=== PATIENT | female | born 1990 | race Caucasian/White ===

== ENCOUNTER 2017-08-06 17:13 | Emergency (ER) | payer OTHER ==
[~2017-08-06] VITALS: Ht 157.5 cm; Wt 92.0 kg
[~2017-08-06 17:13] MED LIST: PREN0.01 PO
[2017-08-06 17:20] VITALS: BP 157/93; PULSE 114; RESP 16; TEMP 98.5; O2SAT 96
[2017-08-06 17:47] LABS: BILIRUBIN, URINE NEG (NEG); BLOOD, URINE TRACE (NEG); GLUCOSE,URINE NEG (NEG); KETONE, URINE TRACE mg/dL (NEG); NITRITE,URINE NEG (NEG); PH, URINE 5.5 (5.0-8.5); URINE LEUKOCYTE ESTERASE NEG (NEG)
[2017-08-06 18:08] LABS: URINE COLOR YELLOW (YELLW/STRAW)
[2017-08-06 18:09] LABS: BACTERIA, URINE FEW /hpf; RBC, URINE 0-3 /hpf (0-3); SQUAMOUS EPITHELIAL CELL URINE > 8 /hpf (0-5)
[2017-08-06] MEDS ORDERED: birth control (18:41)
--- NOTE | 2017-08-06 18:47 | PD ---
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 She denies any vomiting, fevers, or any other symptoms. She states that she thinks she could be . Modifying Factors: None Associated Signs & Symptoms: Does not feel right, lower abdominal discomfort, spotting Risk Factors: None PFSH Past Medical History Diminished Hearing: No Reproductive: Yes (PCOS) : 2 Para: 1 Past Surgical History Section: Yes (X1) Social History Alcohol Use: Yes (OCCASIONALLY) Tobacco Use: No Substance Use: No Allergies-Medications (Allergen,Severity, Reaction): Coded Allergies: No Known Allergies (Unverified Adverse Reaction, Unknown, 08/06/17) Reported Meds & Prescriptions Reported Meds & Active Scripts Active Reported [ control] Review of Systems Except as stated in HPI: all other systems reviewed are Neg Physical Exam Narrative GENERAL: Well-developed young female patient currently in mild distress. Awake and oriented 3. SKIN: Focused skin assessment warm/dry. HEAD: Atraumatic. Normocephalic. EYES: Pupils equal and round. No scleral icterus. No injection or drainage. ENT: No nasal bleeding or discharge. Mucous membranes pink and moist. NECK: Trachea midline. No JVD. Supple. CARDIOVASCULAR: Regular rate and rhythm. No murmur appreciated. RESPIRATORY: No accessory muscle use. Clear to auscultation. Breath sounds equal bilaterally. GASTROINTESTINAL: Abdomen soft, non-tender, nondistended. Hepatic and splenic margins not palpable. GENITOURINARY: Normal external genitalia without lesions or erythema. Vaginal vault without blood but with notable whitish drainage. Cervical os was closed without drainage. No cervical motion tenderness. Uterus nontender. Bilateral adnexa nontender without masses. MUSCULOSKELETAL: No obvious deformities. No clubbing. No cyanosis. No edema. NEUROLOGICAL: Awake and alert. No obvious cranial nerve deficits. Motor grossly within normal limits. Normal speech. PSYCHIATRIC: Appropriate mood and affect; insight and judgment normal. Data Data Last Documented VS Vital Signs Date Time Temp Pulse Resp B/P (MAP) Pulse Ox O2 Delivery O2 Flow Rate FiO2 08/06/17 17:20 98.5 114 16 157/93 (114) 96 Orders Orders Urinalysis - C+S If Indicated (08/06/17 17:23) Ed Urine Pregnancytest Poc (08/06/17 17:23) Beta Hcg (Quant/Titer) (08/06/17 18:32) Complete Blood Count With Diff (08/06/17 18:32) Basic Metabolic Panel (Bmp) (08/06/17 18:32) Complete Rh (08/06/17 18:32) Gc And Chlamydia Pcr (08/06/17 18:58) Wet Prep Profile (08/06/17 18:58) Labs Laboratory Tests Test 08/06/17 17:20 08/06/17 19:03 Urine Color YELLOW Urine Turbidity CLEAR Urine pH 5.5 Urine Specific Wilson 1.032 Urine Protein NEG mg/dL Urine Glucose (UA) NEG mg/dL Urine Ketones TRACE mg/dL Urine Occult Blood TRACE Urine Nitrite NEG Urine Bilirubin NEG Urine Leukocyte Esterase NEG Urine RBC 0-3 /hpf Urine WBC 3-5 /hpf Urine Squamous Epithelial Cells > 8 /hpf Urine Bacteria FEW /hpf Microscopic Urinalysis Comment CULT NOT INDICATED White Blood Count 8.8 TH/MM3 Red Blood Count 5.04 MIL/MM3 Hemoglobin 13.4 GM/DL Hematocrit 41.4 % Mean Corpuscular Volume 82.1 FL Mean Corpuscular Hemoglobin 26.6 PG Mean Corpuscular Hemoglobin Concent 32.4 % Red Cell Distribution Width 12.4 % Platelet Count 338 TH/MM3 Mean Platelet Volume 8.4 FL Neutrophils (%) (Auto) 73.5 % Lymphocytes (%) (Auto) 19.3 % Monocytes (%) (Auto) 6.1 % Eosinophils (%) (Auto) 0.9 % Basophils (%) (Auto) 0.2 % Neutrophils # (Auto) 6.5 TH/MM3 Lymphocytes # (Auto) 1.7 TH/MM3 Monocytes # (Auto) 0.5 TH/MM3 Eosinophils # (Auto) 0.1 TH/MM3 Basophils # (Auto) 0.0 TH/MM3 CBC Comment DIFF FINAL Differential Comment Sodium Level 137 MEQ/L Potassium Level 3.9 MEQ/L Chloride Level 107 MEQ/L [facility] Medical Decision Making Medical Screen Exam Complete: Yes Emergency Medical Condition: Yes Medical Record Reviewed: Yes Interpretation(s) Laboratory Tests Test 08/06/17 17:20 08/06/17 19:03 Urine Ketones TRACE mg/dL (NEG) Urine Squamous Epithelial Cells > 8 /hpf (0-5) Urine Bacteria FEW /hpf (NONE) Mean Corpuscular Hemoglobin 26.6 PG (27.0-34.0) Neutrophils (%) (Auto) 73.5 % (16.0-70.0) Differential Diagnosis UTI versus threatened AB versus ectopic Narrative Course testing is positive. She is Rh+. There is no CMT, cervix is closed. Physician Communication Physician Communication Case is signed out to Dr. Obando at 7 PM pending lab work, hCG, possible ultrasound if the patient is far enough along for evaluation . Diagnosis Primary Impression: Condition: Stable SoontharothKarissa carlos MD Aug 06, 2017 18:47
[2017-08-06 19:16] LABS: AUTOMATED NEUTROPHIL # 6.5 TH/MM3 (1.8-7.7); BASOPHIL % 0.2 % (0.0-2.0); EOSINOPHIL # 0.1 TH/MM3 (0-0.4); EOSINOPHIL % 0.9 % (0.0-4.0); HEMATOCRIT 41.4 % (35.0-46.0); HEMOGLOBIN 13.4 GM/DL (11.6-15.3); LYMPH % 19.3 % (9.0-44.0); LYMPHOCYTE # 1.7 TH/MM3 (1.0-4.8); MEAN CELL VOLUME 82.1 FL (80.0-100.0); MEAN CORPUSCULAR HEMOGLOBIN 26.6 PG (27.0-34.0); MEAN CORPUSCULAR HGB CONC 32.4 % (32.0-36.0); MEAN PLATELET VOLUME 8.4 FL (7.0-11.0); MONO % 6.1 % (0.0-8.0); MONOCYTE # 0.5 TH/MM3 (0-0.9); NEUT % 73.5 % (16.0-70.0); PLATELET COUNT 338 TH/MM3 (150-450); RED BLOOD COUNT 5.04 MIL/MM3 (4.00-5.30); RED CELL DISTRIBUTION WIDTH 12.4 % (11.6-17.2); WHITE BLOOD COUNT 8.8 TH/MM3 (4.0-11.0)
[2017-08-06 19:26] LABS: BICARBONATE 26.9 MEQ/L (21.0-32.0); CALCIUM 8.5 MG/DL (8.5-10.1)
[2017-08-06 19:30] VITALS: BP 145/88; PULSE 105; RESP 18; O2SAT 97
[2017-08-06 19:30] LABS: CREATININE 0.55 MG/DL (0.50-1.00)
--- NOTE | 2017-08-06 20:12 | PD ---
Physical Exam Time Seen by Provider: 20:[address] Stephenson left this patient with me to check the results of the laboratory and likely discharge. Data Data Last Documented VS Vital Signs Date Time Temp Pulse Resp B/P (MAP) Pulse Ox O2 Delivery O2 Flow Rate FiO2 08/06/17 17:20 98.5 114 16 157/93 (114) 96 Orders Orders Urinalysis - C+S If Indicated (08/06/17 17:23) Ed Urine Pregnancytest Poc (08/06/17 17:23) Beta Hcg (Quant/Titer) (08/06/17 18:32) Complete Blood Count With Diff (08/06/17 18:32) Basic Metabolic Panel (Bmp) (08/06/17 18:32) Complete Rh (08/06/17 18:32) Gc And Chlamydia Pcr (08/06/17 18:58) Wet Prep Profile (08/06/17 18:58) Us Pelvis (Ques Pr/Ect)W Trans (08/06/17 ) Labs Laboratory Tests Test 08/06/17 17:20 08/06/17 19:03 Urine Color YELLOW Urine Turbidity CLEAR Urine pH 5.5 Urine Specific Sullivan 1.032 Urine Protein NEG mg/dL Urine Glucose (UA) NEG mg/dL Urine Ketones TRACE mg/dL Urine Occult Blood TRACE Urine Nitrite NEG Urine Bilirubin NEG Urine Leukocyte Esterase NEG Urine RBC 0-3 /hpf Urine WBC 3-5 /hpf Urine Squamous Epithelial Cells > 8 /hpf Urine Bacteria FEW /hpf Microscopic Urinalysis Comment CULT NOT INDICATED White Blood Count 8.8 TH/MM3 Red Blood Count 5.04 MIL/MM3 Hemoglobin 13.4 GM/DL Hematocrit 41.4 % Mean Corpuscular Volume 82.1 FL Mean Corpuscular Hemoglobin 26.6 PG Mean Corpuscular Hemoglobin Concent 32.4 % Red Cell Distribution Width 12.4 % Platelet Count 338 TH/MM3 Mean Platelet Volume 8.4 FL Neutrophils (%) (Auto) 73.5 % Lymphocytes (%) (Auto) 19.3 % Monocytes (%) (Auto) 6.1 % Eosinophils (%) (Auto) 0.9 % Basophils (%) (Auto) 0.2 % Neutrophils # (Auto) 6.5 TH/MM3 Lymphocytes # (Auto) 1.7 TH/MM3 Monocytes # (Auto) 0.5 TH/MM3 Eosinophils # (Auto) 0.1 TH/MM3 Basophils # (Auto) 0.0 TH/MM3 CBC Comment DIFF FINAL Differential Comment Clue Cells (Wet Prep) NONE SEEN Vaginal Trichomonas (Wet Prep) NONE SEEN Vaginal Yeast (Wet Prep) NONE SEEN Blood Urea Nitrogen 10 MG/DL Creatinine 0.55 MG/DL Random Glucose 89 MG/DL Calcium Level 8.5 MG/DL Sodium Level 137 MEQ/L Potassium Level 3.9 MEQ/L Chloride Level 107 MEQ/L Carbon Dioxide Level 26.9 MEQ/L Anion Gap 3 MEQ/L Estimat Glomerular Filtration Rate 132 ML/MIN Human Chorionic Gonadotropin, Quant 1371 MIU/ML Chlamydia trachomatis DNA (PCR) NOT DETECTED Neisseria gonorrhoeae DNA (PCR) NOT DETECTED MDM Medical Record Reviewed: Yes Supervised Visit with EDITH: No Interpretation(s) The CBC is normal. The beta-hCG is 1371 and the basic metabolic profile is normal. The urinalysis shows trace ketones, trace blood and few bacteria but is otherwise normal and culture is not indicated. The wet prep, Trichomonas and vaginal yeast are negative on the wet prep. The ultrasound showed no definite intrauterine gestational sac. This is likely due to a very early intrauterine . Serial beta-hCG levels are requested of the patient, she needs to follow-up with an fish hatchery assistant. No adnexal masses or fluid fluid is noted within the cul-de-sac. Differential Diagnosis , ectopic , early intrauterine , missed , intrauterine , urinary tract infection, PID, bacterial vaginosis, monilial vaginitis, Trichomonas vaginitis Narrative Course The patient likely has a very early intrauterine . Nevertheless, serial beta hCG titers are requested of this patient Diagnosis Primary Impression: Additional Instruction: As we discussed, in till we can actually see the inside the uterus we have to worry about an ectopic . It is necessary to get repeat blood tests to make sure that your is going along fine. It is necessary to follow-up as soon as possible with an fish hatchery assistant. Start taking the vitamins again. Med/Other Pt SpecificInfo: No Change to Meds Disposition: 01 DISCHARGE HOME Condition: Stable Keny Obando MD Aug 06, 2017 20:12
--- NOTE | 2017-08-06 21:17 | RADRPT ---
EXAM DATE/TIME: 08/06/2017 20:39 [facility] COMPARISON: US PELVIS (QUEST PREG/ECTOPIC) W/TRANSVAG, March 08, 2016, 20:19. INDICATIONS : Pelvic pain. LAB(S): Beta-hC MEDICAL HISTORY : . PCOS. SURGICAL HISTORY : section. ENCOUNTER: Initial ACUITY: 1 day PAIN SCORE: 3/10 LOCATION: Bilateral pelvis MEASUREMENTS: UTERUS: 10.1 x 5.4 x 7.1 cm ENDOMETRIAL STRIPE: >20 mm RIGHT OVARY: 2.9 x 2.5 x 2.3 cm LEFT OVARY: 2.9 x 2.7 x 3.0 cm FREE FLUID: No CROWN RUMP LENGTH: Not visualized. FHR: Not visualized. FINDINGS: The patient has a positive test. No definite intrauterine gestational sac is identified at this time. No pole is noted. Differential diagnosis includes very early intrauterine , missed and ectopic . Correlation with serial beta hCG levels is suggested. No free fluid is noted within the cul-de-sac. No adnexal mass is noted. The ovaries are unremarkable. CONCLUSION: 1. No definite intrauterine gestational sac is identified. Differential diagnosis in this patient wit h a positive test includes very early intrauterine , missed and ectopic p regnancy. Correlation with serial beta-hCG levels is suggested. 2. No adnexal mass or free fluid within the cul-de-sac is noted. Doc Altman MD on August 06, 2017 at 21:10 Board Certified Radiologist. This report was verified electronically.
[2017-08-06 22:34] VITALS: BP 142/85; TEMP 98.2
== END 2017-08-06 22:35 | disposition home or self-care (01) ==
LOC: PHED 17:13
DX: O26.891 Other specified pregnancy related conditions, first trimester (principal); R10.2 Pelvic and perineal pain; Z3A.00 Weeks of gestation of pregnancy not specified
CPT/HCPCS: 76700; 76817; 80048; 81001; 84702; 84703; 85025; 86901; 87210; 87491; 87591; 99284